=== PATIENT | male | born 1960 | race Caucasian/White ===

== ENCOUNTER 2024-10-16 09:36 | Emergency (ER) | payer BC ==
[~2024-10-16] VITALS: Ht 175.3 cm; Wt 74.8 kg
[2024-10-16 11:04] LABS: Source, Urine Foley catheter
[2024-10-16 11:07] LABS: Bilirubin, Urine Neg (Neg); Color, Urine Yellow (P-Yellow); Glucose Qualitative, Urine Neg (Neg); Ketones, Urine 2+ (Neg); Leukocyte Esterase, Urine Neg (Neg); Protein, Urine Neg (Neg); Specific Gravity, Urine 1.025 (1.003-1.022); Urobilinogen, Urine NORM (Normal)
== END 2024-10-16 11:24 | disposition home or self-care (01) ==
LOC: ER 09:36
PROVIDERS: Emergency Medicine
DX: R33.9 Retention of urine, unspecified (principal)
CPT/HCPCS: 51702; 81003; 99283-25